=== PATIENT | female | born 1945 | race Asian ===

== ENCOUNTER 2017-06-28 21:12 | Emergency (ER) | payer OTHER ==
[~2017-06-28] VITALS: Ht 162.6 cm; Wt 58.1 kg
[2017-06-28 21:15] VITALS: Ht 162.6 cm; Wt 58.1 kg
[2017-06-28 21:28] LABS: URINE BLOOD (Dip) POC 1+ (NEGATIVE)
[2017-06-28] MEDS ORDERED: morphine 2 MG INJ IV STA (21:34)
[2017-06-28] MEDS ORDERED: ONDANSETRON 4 MG INJ IV STA (21:34)
[2017-06-28] MEDS ORDERED: SOD CHLORIDE 0.9% 500 ML IV STA (21:34)
[2017-06-28] MEDS ORDERED: FAMOTIDINE 20 MG INJ IV STA (21:34)
[2017-06-28 22:09] LABS: BASOPHILS % 0.7 % (0.0-2.0); EOSINOPHILS % 0.5 % (0.0-7.0); HEMATOCRIT 37.6 % (37.0-47.0); HEMOGLOBIN 12.6 g/dl (12.0-16.0); LYMPHOCYTES # 1.1 10^3/ul (0.8-2.9); LYMPHOCYTES % 17.3 % (15.0-51.0); MEAN CORPUSCULAR HEMOGLOBIN 31.6 pg (29.0-33.0); MEAN CORPUSCULAR HGB CONC 33.5 g/dl (32.0-37.0); MEAN CORPUSCULAR VOLUME 94.2 fl (82.0-101.0); MEAN PLATELET VOLUME 9.9 fl (7.4-10.4); MONOCYTE # 0.3 10^3/ul (0.3-0.9); MONOCYTES % 4.6 % (0.0-11.0); NEUTROPHIL # 4.7 10^3/ul (1.6-7.5); NEUTROPHILS % 76.6 % (39.0-77.0); PLATELET COUNT 172 10^3/UL (140-415); RED BLOOD COUNT 3.99 10^6/ul (4.20-5.40); RED CELL DISTRIBUTION WIDTH 13.2 % (11.5-14.5); WHITE BLOOD COUNT 6.1 10^3/ul (4.8-10.8)
[2017-06-28 22:16] LABS: ADD UMIC YES; UR ASCORBIC ACID NEGATIVE (NEGATIVE); UR BACTERIA FEW /HPF (NONE SEEN); UR BILIRUBIN (Dip) NEGATIVE (NEGATIVE); UR BLOOD (Dip) 1+ mg/dL (NEGATIVE); UR CLARITY CLEAR (CLEAR); UR COLOR YELLOW (YELLOW); UR GLUCOSE (Dip) NEGATIVE (NEGATIVE); UR KETONES (Dip) NEGATIVE (NEGATIVE); UR LEUKOCYTE ESTERASE (Dip) 1+ Leu/ul (NEGATIVE); UR NITRITE (Dip) NEGATIVE (NEGATIVE); UR RBC 3 /HPF (0-5); UR SPECIFIC GRAVITY (Dip) 1.014 (1.003-1.030); UR SQUAMOUS EPITHELIAL CELL FEW /HPF (FEW); UR TOTAL PROTEIN (Dip) NEGATIVE (NEGATIVE); UR UROBILINOGEN (Dip) NEGATIVE (NEGATIVE)
[2017-06-28 22:25] LABS: ALBUMIN 4.2 g/dl (3.3-4.9); ALBUMIN/GLOBULIN RATIO 1.13; BILIRUBIN,INDIRECT 0.7 mg/dl (0-1.1); BILIRUBIN,TOTAL 0.7 mg/dl (0.2-1.3); CALCIUM 9.6 mg/dl (8.4-10.2); CREATININE 1.09 mg/dl (0.44-1.00); TOTAL PROTEIN 7.9 g/dl (6.1-8.1)
--- NOTE | 2017-06-28 22:50 | ERD ---
ER Documentation Chief Complaint Chief Complaint upper abd pain x 2 days HPI 72-year-old female, history of hypertension and diverticulitis 2 years ago status post colon resection, diverting colostomy and subsequent reversal presents to the ED for abdominal pain. Yesterday experienced acute onset of sharp, nonradiating, lower epigastric abdominal pain which was relieved by Pepto -Bismol. Today after eating again experienced similar pain. Denies nausea, vomiting, diarrhea or constipation. No dysuria, polyuria, hematuria or flank pain. Denies chest pain or palpitations. No ill contacts, recent travel or contaminated food exposure. No fevers or chills. ROS All systems reviewed and are negative except as per history of present illness. Medications Home Meds Active Scripts Ondansetron Hcl* (Zofran*) 4 Mg Tablet, 4 MG PO Q8H Y for NAUSEA AND/OR VOMITING , #12 TAB Prov:MANUEL SPENCER MD 06/28/17 Hydrocodone/Acetaminophen ([place] 5-325 Tablet) 1 Each Tablet, 1 TAB PO Q6H Y for PAIN, #7 TAB Prov:MANUEL SPENCER MD 06/28/17 Allergies Allergies: Coded Allergies: No Known Allergy (Unverified , 06/28/17) PMhx/Soc Reviewed in chart. As per HPI. History of Surgery: Yes (diverticulectomy w/ temp. colostomy, colostomy reversal '15) Anesthesia Reaction: No Hx Cardiac Disorders: Yes (htn) Hx Miscellaneous Medical Probl: Yes (diverticulitis) Hx Alcohol Use: No Hx Substance Use: No Hx Tobacco Use: No Smoking Status: Never smoker FmHx Breast cancer and lung cancer. No coronary artery disease, diabetes or stroke. Physical Exam Vitals Vital Signs Date Time Temp Pulse Resp B/P Pulse Ox O2 Delivery O2 Flow Rate FiO2 06/28/17 23:25 64 18 127/72 100 Room Air 06/28/17 22:35 64 18 148/76 99 Room Air 06/28/17 21:15 98.2 78 20 167/87 98 Physical Exam Const: Alert, mild distress due to pain. Head: Atraumatic Eyes: Normal Conjunctiva ENT: Normal External Ears, Nose and Mouth. Neck: Full range of motion. No meningismus. Resp: Clear to auscultation bilaterally Cardio: Regular rate and rhythm, no murmurs Abd: Soft, non tender, non distended. Normal bowel sounds. No masses or abnormal pulsations. Skin: No petechiae or rashes Back: No midline or flank tenderness Ext: No cyanosis, or edema. Pulses 4+ in all extremities. Neur: Awake and alert Psych: Normal Mood and Affect Result Diagram: 06/28/17214606/28/172146 Results 24 hrs Laboratory Tests Test 06/28/17 21:26 06/28/17 21:47 Bedside Urine pH (LAB) 7.0 Bedside Urine Protein (LAB) Negative Bedside Urine Glucose (UA) Negative Bedside Urine Ketones (LAB) Negative Bedside Urine Blood 1+ Bedside Urine Nitrite (LAB) Negative Bedside Urine Leukocyte Esterase (L 1+ White Blood Count 6.110^3/ul Red Blood Count 3.9910^6/ul Hemoglobin 12.6g/dl Hematocrit 37.6% Mean Corpuscular Volume 94.2fl Mean Corpuscular Hemoglobin 31.6pg Mean Corpuscular Hemoglobin Concent 33.5g/dl Red Cell Distribution Width 13.2% Platelet Count 07438^3/UL Mean Platelet Volume 9.9fl Neutrophils % 76.6% Lymphocytes % 17.3% Monocytes % 4.6% Eosinophils % 0.5% Basophils % 0.7% Nucleated Red Blood Cells % 0.0/100WBC Neutrophils # 4.710^3/ul Lymphocytes # 1.110^3/ul Monocytes # 0.310^3/ul Eosinophils # 0.010^3/ul Basophils # 0.010^3/ul Nucleated Red Blood Cells # 0.010^3/ul Urine Color YELLOW Urine Clarity CLEAR Urine pH 6.0 Urine Specific [place] 1.014 Urine Ketones NEGATIVEmg/dL Urine Nitrite NEGATIVEmg/dL Urine Bilirubin NEGATIVEmg/dL Urine Urobilinogen NEGATIVEmg/dL Urine Leukocyte Esterase 1+Taj/ul Urine Microscopic RBC 3/HPF Urine Microscopic WBC 11/HPF Urine Squamous Epithelial Cells FEW/HPF Urine Bacteria FEW/HPF Urine Hemoglobin 1+mg/dL Urine Glucose NEGATIVEmg/dL Urine Total Protein NEGATIVEmg/dl Sodium Level 142mmol/L Potassium Level 4.0mmol/L Chloride Level 105mmol/L Carbon Dioxide Level 28mmol/L Anion Gap 13 Blood Urea Nitrogen 20mg/dl Creatinine 1.09mg/dl Glucose Level 135mg/dl Calcium Level 9.6mg/dl Total Bilirubin 0.7mg/dl Direct Bilirubin 0.00mg/dl Indirect Bilirubin 0.7mg/dl Aspartate Amino Transf (AST/SGOT) 562IU/L Alanine Aminotransferase (ALT/SGPT) 736IU/L Alkaline Phosphatase 187IU/L Total Protein 7.9g/dl Albumin 4.2g/dl Globulin 3.70g/dl Albumin/Globulin Ratio 1.13 Lipase 140U/L Current Medications Medications (Trade) Dose Ordered Sig/Jessica Route PRN Reason Start Time Stop Time Status Last Admin Dose Admin Sodium Chloride (NS) 500 ml @ 500 mls/hr Q1H STAT IV 06/28/17 21:34 06/28/17 22:33 DC 06/28/17 21:48 Morphine Sulfate (morphine) 2 mg ONCE STAT IV 06/28/17 21:34 06/28/17 21:37 DC 06/28/17 21:48 Ondansetron HCl (Zofran Inj) 4 mg ONCE STAT IV 06/28/17 21:34 06/28/17 21:37 DC 06/28/17 21:48 Famotidine (Pepcid Iv) 20 mg ONCE STAT IV 06/28/17 21:34 06/28/17 21:37 DC 06/28/17 21:48 PROCEDURE: US abdomen limited right upper quadrant. CLINICAL INDICATION: Abdominal pain TECHNIQUE: Multiple real-time images were acquired of the patient's right upper quadrant of the abdomen utilizing a high resolution transducer. COMPARISON: None FINDINGS: There is appearance of cholelithiasis with multiple small minimally shadowing gallstones in the gallbladder the largest 5 mm which are non mobile according to the technologist. There is no pericholecystic fluid or gallbladder wall thickening. The common bile duct measures 7.3 mm in maximal dimension at the upper limit normal for this 72-year-old patient. No free fluid is identified. No abnormality is seen in the pancreas or liver. The right kidney measures 9.1 cm in length and is unremarkable. IMPRESSION: There is appearance of cholelithiasis with multiple small minimally shadowing gallstones in the gallbladder the largest 5 mm which are non mobile according to the technologist. Otherwise unremarkable examination RPTAT: HJES .Last Randall MD, MD Date Time Electronically viewed and signed by .Last Randall MD, MD on 06/28/2017 22:59 .S/ Procedures/MDM DOCUMENTS REVIEWED: ED nurse, no prior records ED COURSE: Normal saline 500 cc bolus. Morphine 2 mg, Zofran 4 mg and Pepcid 20 mg IV REEXAMINATION/REEVALUATION: Time: 22:40. Doing well. Abdomen soft nontender. No further pain. MEDICAL DECISION MAKIN-year-old female, history of hypertension and diverticulitis 2 years ago status post colon resection, diverting colostomy and subsequent reversal presents to the ED for abdominal pain. Transaminitis and elevated alk phosphatase but no hyperbilirubinemia. Right upper quadrant ultrasound performed to evaluate for cholelithiasis/cholecystitis reveals cholelithiasis without evidence of cholecystitis. No evidence of cholangitis or pancreatitis. Hepatitis considered. An occult malignancy is not ruled out. Physical exam is unremarkable without significant tenderness, rebound, guarding or signs of peritonitis. Presentation consistent with biliary colic and pain resolved with analgesics and antiemetics. Stable for discharge with precautionary instructions and outpatient follow-up as counseled. Counseled patient and family regarding diagnostic workup, diagnosis and need for followup. Understands to return to ED if symptoms recur, worsen or any other concerns. Departure Diagnosis: Primary Impression: Abdominal pain, acute, epigastric Additional Impressions: Biliary colic Cholelithiasis Cholelithiasis location: gallbladder Cholecystitis presence: without cholecystitis Biliary obstruction: without biliary obstruction Qualified Code : K80.20 - Calculus of gallbladder without cholecystitis without obstruction Transaminitis Condition: Stable (Improved) MANUEL SPENCER MD Jun 28, 2017 22:50
--- NOTE | 2017-06-28 22:59 | RADRPT ---
PROCEDURE: US abdomen limited right upper quadrant. CLINICAL INDICATION: Abdominal pain TECHNIQUE: Multiple real-time images were acquired [facility] the [facility]. COMPARISON: None FINDINGS: There is appearance of cholelithiasis with multiple small minimally shadowing gallstones in the gall bladder the largest 5 mm which are non mobile according to the technologist. There is no pericholecystic fluid or gallbladder wall thickening. The common bile duct measures 7.3 mm in maximal dimension at the upper limit normal for this 72-year -old patient. No free fluid is identified. No abnormality is seen in the pancreas or liver. The right kidney nika ures 9.1 cm in length and is unremarkable. IMPRESSION: There is appearance of cholelithiasis with multiple small minimally shadowing gallstones in the gall bladder the largest 5 mm which are non mobile according to the technologist. Otherwise unremarkable examination RPTAT: HJES .Last Randall MD, Date Time Electronically viewed and signed by .Last Randall MD, on 06/28/2017 22:59 .S/
[2017-06-28] MEDS ORDERED: ONDA4TAB8 PO (23:24)
[2017-06-28] MEDS ORDERED: HYDR-906 PO (23:24)
[2017-06-28 23:25] VITALS: BP 127/72; PULSE 64; RESP 18
== END 2017-06-28 23:25 | disposition home or self-care (01) ==
LOC: E/R 21:12
DX: K80.70 Calculus of gallbladder and bile duct without cholecystitis without obstruction (principal); R74.0 Nonspecific elevation of levels of transaminase and lactic acid dehydrogenase [LDH]; I10 Essential (primary) hypertension
CPT/HCPCS: 36415; 76705; 80053; 81001; 81003; 83690; 85025; 96374; 96375; J2270; J2405; J7040; Z7502; Z7610